=== PATIENT | male | born 1945 | race Caucasian/White ===

== ENCOUNTER 2018-05-03 08:39 | Emergency (ER) | payer MEDICARE ==
[2018-05-03] MEDS ORDERED: ASPIRIN 81 MG CHEW TAB PO ONE (08:41)
--- NOTE | 2018-05-03 08:41 | ED Physician Documentation ---
General Adult - HISTORIAN Historian: patient - HPI Stated Complaint: chest pain Chief Complaint: Chest Pain Onset: hours (2) Timing: still present Severity: mild Further Comments: yes (He states when he woke at 630 am he had some mild dizziness and felt like he had some chest pressure. Then with laying the feelings started to increase. He denies any "chest pain it is a pressure or a nagging" . He states he feels like he needs to take a deep breath a lot. He denies any other complaints.) Last known Well Code/Unknown Code: Unknown - ROS CONST: no problems EYES/ENT: denies: problems with vision CVS/RESP: chest pain, shortness of breath. denies: cough GI/: denies: nausea NEURO/PSYCH: dizziness. denies: headache, fainting - PAST HX Past History: other (hyperlipidemia (no meds) glucaoma ) Immunizations: UTD Allergies/Adverse Reactions: Allergies Allergy/AdvReac Type Severity Reaction Status Date / Time No Known Allergies Allergy Verified 05/03/18 09:10 Home Medications: Ambulatory Orders Medication Instructions Recorded Unobtainable 05/03/18 - SOCIAL HX Smoking History: cigarettes Drug Use: marijuana - FAMILY HX Family History: No - REVIEWED ASSESSMENTS Nursing Assessment Reviewed: Yes Vitals Reviewed: Yes Progress - Progress Progress: 0845: two attempts to bear down to aide in HR - no change in rate - DG 0851: HR is no normal 87 NSR per EKG and he states he feels "normal now" no further chest discomfort and no further dizziness DG 0900: Is asking to sit up in bed continues to show NSR and no further symptoms DG 0915: No pain NSR noted b/p is improved. DG 0930: No further complaints. Plan and results discussed - he is agreeable - no pain or discomfort at this time DG 1015: Sitting in bed talking on phone DG 1030: Pt is wanting to go home if ok. discussed reasons to call 911 or return he is agreeable DG 100 min due to status DG ED Results Lab/Radiology - Radiology Radiology Impressions: HISTORY: 72-year-old male with chest pain. COMPARISON: None available. TECHNIQUE: Portable upright AP views of the chest were performed. FINDINGS: The bilateral costophrenic angles are not included on these films. The lungs are hyperexpanded, in the upper lobes are hyperlucent. No pneumothorax, consolidative infiltrates, or pulmonary edema. The heart is not enlarged. There is thoracic degenerative disc disease. IMPRESSION: Pulmonary hyperexpansion without evidence of acute intrathoracic process. Electronically signed on May 03, 2018 9:26:10 AM SENIOR SQL DATABASE DEVELOPER by: Wilbert Mireles General Adult Physical Exam - PHYSICAL EXAM GENERAL APPEARANCE: mild distress EENT: eye inspection normal NECK: normal inspection RESPIRATORY: no resp distress, chest non-tender, wheezes (mild exp wheeze ) CVS: reg rate & rhythm, tachycardia ABDOMEN: soft, normal bowel sounds, no distension, non-tender BACK: normal inspection SKIN: warm/dry, normal color EXTREMITIES: non-tender, normal range of motion, no evidence of injury, no edema NEURO: oriented X3 Discharge Clincal Impression: Tachycardia Chest pain Qualifiers: Chest pain type: other chest pain Qualified Code(s): R07.89 - Other chest pain Referrals: Primary Doctor,No [Primary Care Provider] - 2 Days Comments: 1. Follow up with PCP early in week 2. Return to ER for any further symptoms 3. Rest- change position slowly Condition: Stable Disposition: 01 HOME, SELF-CARE Decision to Admit: NO Date of Decison to Admit: 05/03/18 Decision Time: 10:33
[2018-05-03] MEDS ORDERED: 0.9 % SODIUM CHLORIDE 1,000 ML IV ONE ×3 (08:48→09:38)
[2018-05-03] MEDS ORDERED: ADENOSINE 6 MG/2 ML VIAL IVP ONE ×2 (08:50)
[2018-05-03 12:35] VITALS: BP 102/61
--- NOTE | 2018-05-03 18:10 | Diagnostic Imaging Report ---
NEENA KUMAR [facility] [address] [facility].[address] [id number] Report Submission Date: May 03, 2018 9:26:10 AM [employer]RAFTER [employer] Patient Study Name: DONY BLEDSOE Date: May 03, 2018 8:52:24 AM [employer] Modality Type: DX Gender: M Description: CHEST : 47 Institution: [facility] Physician: NEENA KUMAR HISTORY: 72-year-old male with chest pain. COMPARISON: None available. TECHNIQUE: Portable upright AP views of the chest were performed. FINDINGS: The bilateral costophrenic angles are not included on these films. The lungs are hyperexpanded, in the upper lobes are hyperlucent. No pneumothorax, consolidative infiltrates, or pulmonary edema. The heart is not enlarged. There is thoracic degenerative disc disease. IMPRESSION: Pulmonary hyperexpansion without evidence of acute intrathoracic process. Electronically signed on May 03, 2018 9:26:10 AM [employer]RAFTER [employer] by: Wilbert MCGRATH
[2018-05-04 07:32] LABS: eGFR (Non-African) 58
[2018-05-04 07:33] LABS: BASOPHILS % 0.5 (0.0-1.5); EOSINOPHILS % 3.3 % (0.0-6.8); MEAN CORPUSCULAR HEMOGLOBIN 33.1 pg (28.0-34.0); MONOCYTES % 6.3 % (0.0-11.0); NEUTROPHILS # 9.5 # k/uL (1.4-7.7)
== END 2018-05-03 11:05 | disposition home or self-care (01) ==
LOC: ED 08:39
DX: R00.0 Tachycardia, unspecified (principal); R07.89 Other chest pain
CPT/HCPCS: 36415; 71045; 80053; 82550; 84484; 85025; 93005; 96365; 96375; 99284; 99285; G0480; G0481; J0153; J7030; 80320; 80377; S1016